=== PATIENT | male | born 1950 | race Caucasian/White ===

== ENCOUNTER 2017-08-22 12:49 | Inpatient (IN) | payer MEDICARE, OTHER ==
[~2017-08-22] VITALS: Ht 170.2 cm; Wt 126.3 kg
[~2017-08-22 12:49] MED LIST: HCTZ PO; LEVOTHYROXINE PO; UNKNOWN BP MED; ZESTRIL20 MG PO
[2017-08-22 14:20] LABS: BASOPHILS % 0.3 % (0.0-1.0); EOSINOPHILS # (AUTO) 0.1 (0.0-0.4); EOSINOPHILS % 0.4 % (0.0-6.0); HEMATOCRIT 31.3 % (38.2-49.6); LYMPHOCYTES # (AUTO) 2.7 (1.0-3.2); LYMPHOCYTES % 18.8 % (18.0-39.1); MEAN CORPUSCULAR HEMOGLOBIN 39.6 pg (28-32); MEAN CORPUSCULAR HGB CONC 35.1 g/dL (31-35); MEAN CORPUSCULAR VOLUME 112.6 fL (81-99); MONOCYTES # (AUTO) 2.1 (0.2-0.8); MONOCYTES % 14.6 % (4.4-11.3); NEUTROPHILS # (AUTO) 9.5 (2.1-6.9); NEUTROPHILS % 65.3 % (38.7-80.0); PLATELET COUNT 176 x10e3/uL (140-360); RED BLOOD COUNT 2.78 x10e6/uL (4.3-5.7); RED CELL DISTRIBUTION WIDTH 16.7 % (11.7-14.4)
--- NOTE | 2017-08-22 14:36 | Diagnostic Imaging Report ---
PROCEDURE:CHEST SINGLE (PORTABLE) TECHNIQUE:Portable AP chest INDICATION:Weeks; yellow COMPARISON:None. FINDINGS: Lungs are clear and symmetrically inflated. Normal heart size, mediastinal contour, and pulmonary vasculature for technique. Intact skeleton. Mild degenerative change at the acromioclavicular joints bilaterally. Study limited by a combination of patient body habitus and underpenetration from portable technique. CONCLUSION: No acute abnormality. Dictated by: Britton Dior M.D. on 08/22/2017 at 14:45 Electronically approved by: Britton Dior M.D. on 08/22/2017 at 14:45
[2017-08-22] MEDS: SODIUM CHLORIDE 0.9% 1000ML 1,000 ML IV SCH ×2 (15:40→19:40)
[2017-08-22 16:03] LABS: PARTIAL THROMBOPLASTIN TIME 68.9 seconds (23.8-35.5); PROTHROMBIN TIME 78.5 seconds (11.9-14.5)
[2017-08-22 16:15] LABS: INR 9.02
[2017-08-22] MEDS ORDERED: DIATRIZOATE MEGL/DIATRIZOA SOD 30 ML BTL PO ONE (16:27)
[2017-08-22 16:28] LABS: CREATINE KINASE MB 1.3 ng/mL (0.00-5.00)
[2017-08-22 17:03] LABS: ALBUMIN 1.8 g/dL (3.5-5.0); ALBUMIN/GLOBULIN RATIO 0.4 (0.8-2.0); ANION GAP 15.5 mmol/L (8-16); CALCIUM 8.8 mg/dL (8.4-10.2); CREATININE, SERUM 2.09 mg/dL (0.72-1.25); POTASSIUM 4.5 mmol/L (3.5-5.1)
[2017-08-22 18:16] LABS: INR 9.46; PROTHROMBIN TIME 81.5 seconds (11.9-14.5)
[2017-08-22 18:28] LABS: LYMPHOCYTES % (MANUAL) 8 % (19-48); MONOCYTES % (MANUAL) 12 % (3.4-9.0); NEUTROPHILS % (MANUAL) 79 % (40-74)
[2017-08-22 18:29] LABS: PLATELET MORPHOLOGY COMMENT NORMAL; RBC MORPHOLOGY COMMENT NORMAL
[2017-08-22 18:30] LABS: PLATELET ESTIMATE SLIGHTLY DECREASED
[2017-08-22] MEDS ORDERED: PHYTONADIONE 10 MG/ML AMP SQ ONE (18:30)
[2017-08-22 18:38] LABS: CLARITY,URINE CLOUDY (CLEAR); COLOR,URINE AMBER (YELLOW); KETONES,URINE NEGATIVE (NEGATIVE); LEUKOCYTE ESTERASE ,URINE TRACE (NEGATIVE); URINE UROBILINOGEN 8 mg/dL (0.2 - 1)
[2017-08-22 18:41] LABS: BILIRUBIN,URINE 3+ (NEGATIVE); NITRITE,URINE POSITIVE (NEGATIVE); PROTEIN,URINE DIPSTICK 1+ (NEGATIVE)
[2017-08-22 19:07] LABS: AMORPHOUS SEDIMENT,URINE MODERATE (FEW); BACTERIA,URINE FEW /HPF; EPITHELIAL CELLS,URINE RARE /LPF
--- NOTE | 2017-08-22 21:09 | Diagnostic Imaging Report ---
EXAM: CT Abdomen and Pelvis WITHOUT contrast INDICATION: \S\painless jaundice. Weak. yellow and pale. COMPARISON: CT abdomen and pelvis 03/05/2011 TECHNIQUE: Abdomen and pelvis were scanned utilizing a multidetector helical scanner from the lung base to the pubic symphysis without administration of IV contrast. Absence of intravenous contrast decreases sensitivity for detection of focal lesions and vascular pathology. Coronal and sagittal reformations were obtained. Routine protocol was performed. IV CONTRAST: None ORAL CONTRAST: Minimal positive oral contrast was given. Rectal contrast: Administered. COMPLICATIONS: None. GFR 32 RADIATION DOSE: Total DLP: 1374.8 mGy*cm Estimated effective dose: (DLP x 0.015 x size factor) mSv CTDIvol has been reviewed. It is below the limits set by the Radiation Protocol Committee (RPC). FINDINGS: LINES and TUBES: Fernandes catheter in place. Rectal contrast was administered. LOWER THORAX: There is bibasilar atelectasis. Moderate trivessel coronary artery calcifications. HEPATOBILIARY: No focal hepatic lesions. No biliary ductal dilation. GALLBLADDER: No radio-opaque stones or sludge. No wall thickening. SPLEEN: No splenomegaly. Calcified splenic granulomas. PANCREAS: No focal masses or ductal dilatation. ADRENALS: No adrenal nodules KIDNEYS/URETERS: No hydronephrosis. 0.8 cm fat-containing lesion in the inferior pole of the right kidney consistent with angiomyolipoma. No stones. GI TRACT: Colon is diffusely decompressed with mild diffuse wall thickening. Mild wall thickening of the terminal ileum. Mild diffuse small bowel wall thickening. Appendix is not clearly identified. There is however no fat stranding or adenopathy in the right lower quadrant to suggest appendicitis. PELVIC ORGANS/BLADDER: Unremarkable. LYMPH NODES: No lymphadenopathy. VESSELS: There is moderate atherosclerotic disease in the aorta and major arterial branches. PERITONEUM / RETROPERITONEUM: Large amount of simple appearing ascites. BONES: Unremarkable. SOFT TISSUES: Unremarkable. IMPRESSION: 1. Large amount ascites, of unknown etiology. 2. No definite lesions identified in the liver. However, this noncontrast study. 3. Diffuse colonic wall thickening and mild diffuse small bowel wall thickening. This may be related to the ascites. Superimposed infectious etiology cannot be excluded. Signed by: Dr. Danial Silverman M.D. on 08/22/2017 9:06 PM
[2017-08-22] MEDS ORDERED: ONDANSETRON HCL INJ 2 MG/ML VIAL IV PRN (21:30)
--- OUTSIDE RECORDS SUMMARY | 2017-08-22 21:57 | XMS REPORT ---
Author Author [facility] Address Unknown Phone Unavailable Care Team Providers Care Handkerchief Sample Clerk Name Role Phone INGRID MCDONALD Unavailable Unavailable Problems This patient has no known problems. Allergies, Adverse Reactions, Alerts This patient has no known allergies or adverse reactions. Medications This patient has no known medications. Results Test Description Test Time Test Comments Text Results Atomic Results Result Comments CT ABDOMEN/PELVIS WO [place] [address] Patient Name: JERAD POLLOCK MR #: [id number] : 1950 Age/Sex: 67/M Req #: [id number] Adm Physician: Ordered by: INGRID MCDONALD MD Report #: [id number] Location: ER Room/Bed: Procedure: [id number] CT/CT ABDOMEN/PELVIS WO Exam Date: 08/22/17 Exam Time: 1944 REPORT STATUS: Signed EXAM: CT Abdomen and Pelvis WITHOUT contrast INDICATION: S painless jaundice. Weak. yellow and pale. COMPARISON: CT abdomen and pelvis 03/05/2011 TECHNIQUE: Abdomen and pelvis were scanned utilizing a multidetector helical scanner from the lung base to the pubic symphysis without administration of IV contrast. Absence of intravenous contrast decreases sensitivity for detection of focal lesions and vascular pathology. Coronal and sagittal reformations were obtained. Routine protocol was performed. IV CONTRAST: None ORAL CONTRAST: Minimal positive oral contrast was given. Rectal contrast : Administered. COMPLICATIONS: None. GFR 32 RADIATION DOSE : Total DLP: 1374.8 mGy*cm Estimated effective dose: (DLP x 0.015 x size factor) mSv CTDIvol has been reviewed. It is below the limits set by the Radiation Protocol Committee (RPC). FINDINGS: LINES and TUBES : Fernandes catheter in place. Rectal contrast was administered. LOWER THORAX: There is bibasilar atelectasis. Moderate trivessel coronary artery calcifications. HEPATOBILIARY: No focal hepatic lesions. No biliary ductal dilation. GALLBLADDER: No radio-opaque stones or sludge. No wall thickening. SPLEEN: No splenomegaly. Calcified splenic granulomas. PANCREAS: No focal masses or ductal dilatation. ADRENALS: No adrenal nodules KIDNEYS/URETERS: No hydronephrosis. 0.8 cm fat-containing lesion in the inferior pole of the right kidney consistent with angiomyolipoma. No stones. GI TRACT: Colon is diffusely decompressed with mild diffuse wall thickening. Mild wall thickening of the terminal ileum. Mild diffuse small bowel wall thickening. Appendix is not clearly identified. There is however no fat stranding or adenopathy in the right lower quadrant to suggest appendicitis. PELVIC ORGANS/BLADDER: Unremarkable. LYMPH NODES: No lymphadenopathy. VESSELS: There is moderate atherosclerotic disease in the aorta and major arterial branches. PERITONEUM / RETROPERITONEUM: Large amount of simple appearing ascites. BONES: Unremarkable. SOFT TISSUES: Unremarkable. IMPRESSION: 1. Large amount ascites, of unknown etiology. 2. No definite lesions identified in the liver. However, this noncontrast study. 3. Diffuse colonic wall thickening and mild diffuse small bowel wall thickening. This may be related to the ascites. Superimposed infectious etiology cannot be excluded. Signed by: Dr. Juaquin Tamayo M.D. on 08/22/2017 9:06 PM Dictated By: JUAQUIN TAMAYO MD 05 Transcribed By: ALONDRA on 08/22/172105 COPY TO: INGRID MCDONALD MD [facility] ([facility]) [place] [address] Patient Name: JERAD POLLOCK MR #: [id number] : 1950 Age/Sex: 67/M Req #: [id number] [facility] Physician: Ordered by: INGRID MCDONALD MD Report #: [id number] Location: ER Room/Bed: Procedure: [id number] DX/CHEST SINGLE (PORTABLE) Exam Date: 08/22/17 Exam Time: 1420 REPORT STATUS: Signed PROCEDURE: CHEST SINGLE (PORTABLE) TECHNIQUE: Portable AP chest INDICATION: Weeks; yellow COMPARISON: None. FINDINGS: Lungs are clear and symmetrically inflated. Normal heart size, mediastinal contour, and pulmonary vasculature for technique. Intact skeleton. Mild degenerative change at the acromioclavicular joints bilaterally. Study limited by a combination of patient body habitus and underpenetration from portable technique. CONCLUSION: No acute abnormality. Dictated by: Darling Dior M.D. on 08/22/2017 at 14:45 Electronically approved by: Darling Dior M.D. on 08/22/2017 at 14:45 Dictated By: DARLING DIOR MD 1445 Transcribed By: CHINO on 08/22/17 1445 COPY TO: INGRID MCDONALD MD
[2017-08-22] MEDS ORDERED: SODIUM CHLORIDE 0.9% 250ML 250 ML ONE (22:04)
[2017-08-23] MEDS: SODIUM CHLORIDE 0.9% 1000ML 1,000 ML IV SCH ×3 (00:34→22:30)
[2017-08-23 04:46] LABS: BASOPHILS % 0.1 % (0.0-1.0); EOSINOPHILS # (AUTO) 0.1 (0.0-0.4); EOSINOPHILS % 0.9 % (0.0-6.0); HEMATOCRIT 23.3 % (38.2-49.6); HEMOGLOBIN 8.1 g/dL (14.0-18.0); LYMPHOCYTES # (AUTO) 2.3 (1.0-3.2); LYMPHOCYTES % 20.8 % (18.0-39.1); MEAN CORPUSCULAR HEMOGLOBIN 38.8 pg (28-32); MEAN CORPUSCULAR HGB CONC 34.8 g/dL (31-35); MEAN CORPUSCULAR VOLUME 111.5 fL (81-99); MONOCYTES # (AUTO) 1.6 (0.2-0.8); MONOCYTES % 14.4 % (4.4-11.3); NEUTROPHILS # (AUTO) 6.8 (2.1-6.9); NEUTROPHILS % 62.6 % (38.7-80.0); PLATELET COUNT 113 x10e3/uL (140-360); RED BLOOD COUNT 2.09 x10e6/uL (4.3-5.7); RED CELL DISTRIBUTION WIDTH 16.6 % (11.7-14.4)
[2017-08-23 04:57] LABS: INR 2.47; PROTHROMBIN TIME 28.1 seconds (11.9-14.5)
[2017-08-23 04:58] LABS: PARTIAL THROMBOPLASTIN TIME 46.4 seconds (23.8-35.5)
[2017-08-23 05:12] LABS: ALBUMIN/GLOBULIN RATIO 0.5 (0.8-2.0); ANION GAP 16.2 mmol/L (8-16); CALCIUM 8.5 mg/dL (8.4-10.2); CREATININE, SERUM 2.02 mg/dL (0.72-1.25); POTASSIUM 4.2 mmol/L (3.5-5.1)
[2017-08-23] MEDS ORDERED: DOES NOT KNOW MEDS (06:21)
[2017-08-23] MEDS ORDERED: LACTULOSE SYRUP 20 GM/30 ML UDC PO PRN ×2 (07:45→22:30)
[2017-08-23 07:54] LABS: CHOL/HDL RATIO 6.3 (3.9-4.7)
[2017-08-23] MEDS ORDERED: MIDODRINE 2.5 MG TAB PO SCH (08:00)
--- NOTE | 2017-08-23 08:25 | History and Physical ---
PRIMARY CARE PHYSICIAN: Unknown. CHIEF COMPLAINT: Not feeling well. HISTORY OF PRESENT ILLNESS: All the history has been obtained from the brother by telephone. This is a 67-year-old man, who has a history of hypothyroidism and alcohol use about 3 to 4 liquors per day which the brother states has been there for quite sometime, not feeling well, went to a physician 3 weeks ago, told that he had liver disease. Patient apparently quit alcohol at that time, but now due to worsening symptoms, not feeling well, came to the hospital. Here, he was found to be jaundiced, coagulopathic, and confused. He is admitted for further evaluation and management. Patient unable to provide any history. PAST MEDICAL HISTORY: Hypothyroidism, alcohol abuse, abdominal abscess, and morbid obesity. PAST SURGICAL HISTORY: Bowel. ALLERGIES: PER ELECTRONIC MEDICAL RECORD. FAMILY HISTORY/SOCIAL HISTORY: Patient is single. He has no children. He is a retired high school combination teacherserology teacher. Three to four liquor beverages per day. MEDICATIONS: Per electronic medical record. REVIEW OF SYSTEMS: Unobtainable. PHYSICAL EXAMINATION: VITAL SIGNS: Have been reviewed. GENERAL APPEARANCE: Tired-appearing man resting in bed. HEENT: Patient is icteric. He has dry mucous membranes. CARDIOVASCULAR: Normal S1 and S2. LUNGS: He has moderate breath sounds. ABDOMEN: Large abdomen, ascites present. : He has Fernandes in place. He has rectal tube in place. EXTREMITIES: He has 3+ leg edema. SKIN: Dry. PSYCHIATRIC: Flat affect. NEUROLOGICAL: He is confused. Has difficulty speaking. LABS: Reviewed. MEDICATIONS: Reviewed. ASSESSMENT AND PLAN: This is a 67-year-old man. 1. Severe sepsis. Will treat him with Flagyl and Zosyn, and obtain blood cultures. 2. Ascites/likely necrosis. Will consult gastroenterology services. 3. Acute colitis. Will use Flagyl and Zosyn. 4. Hyponatremia. Reassess. 5. Coagulable state. His INR was 9.46 on admission, now it is 2.47 after treatment with 25 mg of vitamin K. 6. Hyperammonemia. Ammonia 139. Will start him on lactulose, and follow up with ammonia level. 7. Hypoalbuminemia secondary to liver disease. 8. Metabolic acidosis. Will obtain labs today. Patient is intravascularly depleted. 9. Microcytic anemia. Will put the patient on thiamine and folic acid, and obtain vitamin B12 level and folic acid level. 10. Hypothyroidism. Restart Synthroid. 11. Hypotension secondary to intravascular volume depletion. Will continue with normal saline at 75 an hour. Will also start midodrine. 12. Prophylaxis. Will use just Pepcid, avoid anticoagulants in this patient who is coagulopathic and thrombocytopenic. Will use sequential compression devices. 13. Disposition. Follow up labs later today. Job#: [id number]
[2017-08-23 08:58] LABS: ANION GAP 15.3 mmol/L (8-16); CALCIUM 8.7 mg/dL (8.4-10.2); CREATININE, SERUM 2.18 mg/dL (0.72-1.25); POTASSIUM 4.3 mmol/L (3.5-5.1)
[2017-08-23] MEDS ORDERED: THIAMINE HCL INJ 100 MG/ML 2ML VIAL IV SCH (09:00)
[2017-08-23] MEDS ORDERED: LEVOTHYROXINE SODIUM 50 MCG TAB PO SCH (09:00)
[2017-08-23] MEDS ORDERED: SODIUM CHLORIDE 0.9% IV SCH (09:00)
[2017-08-23] MEDS ORDERED: FOLIC ACID IV SCH (09:00)
[2017-08-23] MEDS ORDERED: THIAMINE HCL IV SCH (09:00)
[2017-08-23 09:11] LABS: FOLATE 18.6 ng/mL (7.0-15.4)
[2017-08-23] MEDS: FAMOTIDINE 20 MG/2 ML VIAL IV SCH ×2 (10:15→17:00)
[2017-08-23] MEDS: MIDODRINE HCL 5 MG TABLET PO SCH ×2 (12:20→17:00)
[2017-08-23] MEDS ORDERED: PIPER-TAZ 3.375 GM 50 ML IV SCH (14:00)
[2017-08-23] MEDS ORDERED: METRONIDAZOLE 500MG/NS 100ML 100 ML IV SCH (15:00)
[2017-08-23 18:52] VITALS: BP 71/54
[2017-08-23 20:00] VITALS: BP 107/53
[2017-08-23] MEDS ORDERED: ONDANSETRON HCL INJ 2 MG/ML VIAL IV PRN (22:30)
[2017-08-23] MEDS: METRONIDAZOLE 500MG/NS 100ML 100 ML IV SCH (23:00)
[2017-08-24] VITALS (7 sets, daily range): BP systolic 71–113; BP diastolic 47–73
[2017-08-24] MEDS: LEVOTHYROXINE SODIUM 50 MCG TAB PO SCH (06:00)
[2017-08-24] MEDS: PIPER-TAZ 3.375 GM 50 ML IV SCH ×3 (06:00→21:21)
[2017-08-24] MEDS: METRONIDAZOLE 500MG/NS 100ML 100 ML IV SCH ×3 (06:47→22:24)
[2017-08-24 06:51] LABS: BASOPHILS % 0.3 % (0.0-1.0); EOSINOPHILS # (AUTO) 0.2 (0.0-0.4); EOSINOPHILS % 1.9 % (0.0-6.0); HEMOGLOBIN 8.5 g/dL (14.0-18.0); LYMPHOCYTES # (AUTO) 1.7 (1.0-3.2); LYMPHOCYTES % 17.4 % (18.0-39.1); MEAN CORPUSCULAR HEMOGLOBIN 40.3 pg (28-32); MEAN CORPUSCULAR HGB CONC 35.4 g/dL (31-35); MEAN CORPUSCULAR VOLUME 113.7 fL (81-99); MONOCYTES # (AUTO) 1.3 (0.2-0.8); MONOCYTES % 13.5 % (4.4-11.3); NEUTROPHILS # (AUTO) 6.3 (2.1-6.9); NEUTROPHILS % 66.4 % (38.7-80.0); PLATELET COUNT 101 x10e3/uL (140-360); RED BLOOD COUNT 2.11 x10e6/uL (4.3-5.7); RED CELL DISTRIBUTION WIDTH 16.3 % (11.7-14.4)
[2017-08-24 07:06] LABS: ANION GAP 13.8 mmol/L (8-16); CREATININE, SERUM 2.29 mg/dL (0.72-1.25); POTASSIUM 3.8 mmol/L (3.5-5.1)
[2017-08-24] MEDS: MIDODRINE HCL 5 MG TABLET PO SCH ×3 (08:00→16:00)
[2017-08-24 08:03] LABS: INR 2.59; PROTHROMBIN TIME 29.2 seconds (11.9-14.5)
--- NOTE | 2017-08-24 08:35 | Progress Note ---
DATE: August 24, 2017 TIME: 7:30 a.mm. OVERNIGHT: A little more alert. REVIEW OF SYSTEMS: Denies any chest pain. PHYSICAL EXAMINATION VITAL SIGNS: Reviewed. GENERAL: A tired-appearing man resting in bed. HEENT: Patient is icteric. CARDIOVASCULAR: Normal S1 and S2. LUNGS: Moderate breath sounds. ABDOMEN: Large. Ascites present. : Fernandes. He has a rectal tube in place. EXTREMITIES: Three plus leg edema. SKIN: Dry. PSYCHIATRIC: Flat affect. NEUROLOGICAL: Confused but more alert today. Alert and oriented times 2. LABS: Reviewed. MEDICATIONS: Reviewed. ASSESSMENT: A 67-year-old man with: 1. Severe sepsis. 2. Ascites/likely cirrhosis. 3. Acute colitis. 4. Hyponatremia. 5. Coagulopathy. 6. Hypoalbuminemia. 7. Hepatic encephalopathy. 8. Microcytic anemia. 9. Hypothyroidism. 10. Hypotension due to intravascular volume depletion. PLAN 1. Continue lactulose and goal is 3 bowel movements a day. 2. Continue Flagyl and Zosyn. 3. Continue folic acid and thiamine. 4. Leukocytosis, resolving. 5. Follow up anemia level. 6. Hyponatremia improving. 7. Ammonia level elevated again this morning. Will increase lactulose. 8. Elevated INR, had improved. Will recheck today. Will likely need potassium levels daily. 9. All cultures remain negative to date. 10. Physical therapy consultation. 11. Skilled facility evaluation. Job#: [id number] LEYDA
[2017-08-24] MEDS: FAMOTIDINE 20 MG/2 ML VIAL IV SCH ×2 (09:00→17:41)
[2017-08-24] MEDS: FOLIC ACID IV SCH (10:30)
[2017-08-24] MEDS: SODIUM CHLORIDE 0.9% IV SCH (10:30)
[2017-08-24] MEDS: THIAMINE HCL IV SCH (10:30)
[2017-08-24] MEDS: SODIUM CHLORIDE 0.9% 1000ML 1,000 ML IV SCH (11:50)
--- NOTE | 2017-08-24 19:18 | Consultation ---
DATE OF CONSULTATION: August 22, 2017 This is a 67 year old who has a history of alcohol abuse, doing about 3-4 liquors per day, was brought into the hospital by his brother because the patient has been not feeling well and getting somewhat confused, as well as jaundice. His workup so far revealed that his bilirubin was 23 with AST of 243 and ALT of 115. He is also coagulopathic on admission with a PT of 78.5 and INR of 9.02. This has been going down. He was somewhat confused. On admission, his ammonia level was 139. His CT scan of the abdomen and pelvis on admission shows evidence of large amount of ascites and there is chronic wall thickening with mild diffuse small bowel wall thickening probably related to the ascites. His other medical problems are significant for history of hypothyroidism, history of alcohol abuse. ALLERGIES: APPARENTLY NONE. SOCIAL HISTORY: Again, history of alcohol abuse. FAMILY HISTORY: Cirrhosis. CURRENT MEDICATIONS: Include Pepcid, Zosyn, Flagyl, banana bag, levothyroxine, lactulose. REVIEW OF SYSTEMS: At this point, the patient denies any chest pain. Denies any shortness of breath. Denies any dysphagia or odynophagia. Denies any dysuria or hematuria. PHYSICAL EXAMINATION GENERAL: The patient is awake, but is intermittently falling asleep during the interview. VITAL SIGNS: Afebrile. HEENT: Normocephalic and atraumatic. Sclerae are deeply icteric. NECK: Supple. HEART: Regular. LUNGS: Clear. ABDOMEN: Soft. Diffusely distended with ascites. It is nontender. EXTREMITIES: Normal. CURRENT LAB VALUES: As of yesterday, the bilirubin was 20.8, AST of 173, ALT of 85. The PT was this morning 29.2 with INR of 2.59. IMPRESSION 1. Alcoholic hepatitis. 2. Cirrhosis with portal hypertension and coagulopathy. 3. Hepatic encephalopathy. RECOMMENDATIONS: Continue with diuretics at this point along with lactulose. Follow labs clinically. Will give also some vitamin K. Supportive measures at this point. Consider prednisone. Prognosis poor. Job#: [id number] LEYDA cc:MISTI TAPIA DO
[2017-08-25] MEDS: SODIUM CHLORIDE 0.9% 1000ML 1,000 ML IV SCH ×2 (05:30→14:51)
[2017-08-25] MEDS: LEVOTHYROXINE SODIUM 50 MCG TAB PO SCH (06:00)
[2017-08-25] MEDS: PIPER-TAZ 3.375 GM 50 ML IV SCH ×3 (06:00→22:00)
[2017-08-25] MEDS: METRONIDAZOLE 500MG/NS 100ML 100 ML IV SCH ×3 (06:19→23:12)
[2017-08-25 06:21] LABS: BASOPHILS % 0.2 % (0.0-1.0); EOSINOPHILS # (AUTO) 0.2 (0.0-0.4); EOSINOPHILS % 1.5 % (0.0-6.0); HEMATOCRIT 25.5 % (38.2-49.6); LYMPHOCYTES # (AUTO) 1.7 (1.0-3.2); LYMPHOCYTES % 13.5 % (18.0-39.1); MEAN CORPUSCULAR HEMOGLOBIN 39.3 pg (28-32); MEAN CORPUSCULAR HGB CONC 35.3 g/dL (31-35); MEAN CORPUSCULAR VOLUME 111.4 fL (81-99); MONOCYTES # (AUTO) 1.8 (0.2-0.8); MONOCYTES % 14.9 % (4.4-11.3); NEUTROPHILS # (AUTO) 8.5 (2.1-6.9); PLATELET COUNT 120 x10e3/uL (140-360); RED BLOOD COUNT 2.29 x10e6/uL (4.3-5.7); RED CELL DISTRIBUTION WIDTH 16.4 % (11.7-14.4)
[2017-08-25 06:31] LABS: INR 2.18; PROTHROMBIN TIME 25.4 seconds (11.9-14.5)
[2017-08-25 06:40] LABS: ALBUMIN 1.8 g/dL (3.5-5.0); ANION GAP 15.8 mmol/L (8-16); BILIRUBIN,DIRECT 12.7 mg/dL (0.0-5.0); CALCIUM 8.3 mg/dL (8.4-10.2); CREATININE, SERUM 2.36 mg/dL (0.72-1.25); POTASSIUM 3.8 mmol/L (3.5-5.1)
[2017-08-25 08:28] VITALS: BP 126/59
[2017-08-25] MEDS: MIDODRINE HCL 5 MG TABLET PO SCH ×3 (09:22→16:00)
[2017-08-25] MEDS: FAMOTIDINE 20 MG/2 ML VIAL IV SCH ×2 (09:23→17:00)
[2017-08-25] MEDS: PHYTONADIONE 10 MG/ML AMP PO SCH (09:25)
[2017-08-25] MEDS: SODIUM CHLORIDE 0.9% IV SCH (10:00)
[2017-08-25] MEDS: FOLIC ACID IV SCH (10:00)
[2017-08-25] MEDS: THIAMINE HCL IV SCH (10:00)
[2017-08-25 13:15] VITALS: BP 93/55
[2017-08-25 17:43] VITALS: BP 95/50
--- NOTE | 2017-08-25 18:17 | Discharge Summary ---
FINAL DIAGNOSES 1. Severe sepsis. 2. Ascites, likely cirrhosis. 3. Acute colitis. 4. Hyponatremia. 5. Coagulopathy. 6. Hypoalbuminemia. 7. Hepatic encephalopathy. 8. Microcytic anemia. 9. Hypothyroidism. 10. Hypotension due to intravascular volume depletion. SECONDARY DIAGNOSIS: Hypothyroidism. CHIEF COMPLAINT: Not feeling well. HISTORY OF PRESENT ILLNESS: A 67-year-old man not feeling well. Please refer to H\T\P for further details. HOSPITAL COURSE: The patient found to have severe sepsis. He received IV antibiotics. He had ascites with likely cirrhosis. Imaging did not show any liver mass. The patient had severe jaundice. His bilirubin was 20 and remained 20. He received lactulose for hypoalbuminemia and hepatic encephalopathy. Condition did improve with Lactulose. He will need to continue Lactulose with 2-3 bowel movements a day. He had hyponatremia, coagulopathy, hypoalbuminemia, microcytic anemia, all related to his liver disease. I discussed this case extensively with the patient's brother and sister. They are considering hospice care. In the meantime, the patient will be transitioned to a skilled facility for further care. DISCHARGE MEDICATIONS: Per electronic medical records. FOLLOWUP INSTRUCTIONS: Follow up with the medical team at the senior care facility. All cultures remained negative during hospitalization. JOAQUIN CARMONA MD Job#: [id number]
[2017-08-25 20:00] VITALS: BP 88/51
[2017-08-25] MEDS ORDERED: SODIUM CHLORIDE 0.9% 500ML 500 ML IV ONE (22:15)
[2017-08-25] MEDS ORDERED: MIDODRINE 2.5 MG TAB PO ONE (22:15)
[2017-08-26] VITALS: BP 105/59
[2017-08-26 04:00] VITALS: BP 108/64
[2017-08-26] MEDS: SODIUM CHLORIDE 0.9% 1000ML 1,000 ML IV SCH (05:10)
[2017-08-26] MEDS: LEVOTHYROXINE SODIUM 50 MCG TAB PO SCH (05:23)
[2017-08-26] MEDS: PIPER-TAZ 3.375 GM 50 ML IV SCH (05:23)
[2017-08-26] MEDS ORDERED: HYDROCORTISONE SOD SUCCINATE 100 MG VIAL IV SCH (06:00)
[2017-08-26 08:00] VITALS: BP 97/52
[2017-08-26] MEDS: PHYTONADIONE 10 MG/ML AMP PO SCH (08:02)
[2017-08-26] MEDS: METRONIDAZOLE 500MG/NS 100ML 100 ML IV SCH (08:02)
[2017-08-26] MEDS: MIDODRINE HCL 5 MG TABLET PO SCH ×2 (08:02→12:27)
[2017-08-26] MEDS: FAMOTIDINE 20 MG/2 ML VIAL IV SCH (08:02)
[2017-08-26 12:00] VITALS: BP 105/53
[2017-08-26] MEDS: FOLIC ACID IV SCH (12:27)
[2017-08-26] MEDS: SODIUM CHLORIDE 0.9% IV SCH (12:27)
[2017-08-26] MEDS: THIAMINE HCL IV SCH (12:27)
[2017-08-26] MEDS ORDERED: FAMOTIDINE 20 MG TAB PO SCH (16:30)
--- NOTE | 2017-08-26 16:54 | Discharge Summary ---
ADDENDUM TO DISCHARGE SUMMARY The patient remained in the hospital overnight. Now today, 08/26/2017, the patient will be discharged to hospice care services. All final diagnoses and secondary diagnoses are unchanged. Please refer to the discharge summary dated 08/25/2017 at 3406. JOAQUIN CARMONA MD Job#: [id number]
== END 2017-08-26 14:10 | disposition hospice, inpatient (51) | DRG 871 ==
LOC: ER 12:52 → ERHOLD 21:54 → MED/SURG2 08-23 16:31
PROVIDERS: ADMIT Internal Medicine; ATTEND Internal Medicine
PROC: 02HV33Z Insertion of Infusion Device into Superior Vena Cava, Percutaneous Approach (ICD-10-PCS; principal; 2017-08-22)
PROC: 30243L1 Transfusion of Nonautologous Fresh Plasma into Central Vein, Percutaneous Approach (ICD-10-PCS; 2017-08-22)
DX: A41.9 Sepsis, unspecified organism (principal); D65 Disseminated intravascular coagulation [defibrination syndrome]; N17.9 Acute kidney failure, unspecified; K70.31 Alcoholic cirrhosis of liver with ascites; E87.1 Hypo-osmolality and hyponatremia; K76.6 Portal hypertension; K72.90 Hepatic failure, unspecified without coma; R65.20 Severe sepsis without septic shock; E86.0 Dehydration; K52.9 Noninfective gastroenteritis and colitis, unspecified; D64.9 Anemia, unspecified; E88.09 Other disorders of plasma-protein metabolism, not elsewhere classified; E03.9 Hypothyroidism, unspecified; Z86.718 Personal history of other venous thrombosis and embolism; Z79.01 Long term (current) use of anticoagulants; Z86.711 Personal history of pulmonary embolism
CPT/HCPCS: 36415; 36430; 71045; 74176; 80048; 80053; 80061; 80076; 81001; 82140; 82550; 82553; 82607; 82746; 83036; 83880; 84443; 84484; 85025; 85610; 85730; 86850; 86900; 87040; 87086; 93005; 97139; 99285; J1720; J2405; J2543; J3411; J3430; J7030; J7050; P9017